=== PATIENT | female | born 1960 | race Two or more races ===

== ENCOUNTER → 2018-08-13 | Outpatient (CLI) | payer BC | END | disposition home or self-care (01) | LOC: HKI 10:26 | DX: M25.551 Pain in right hip (principal); Z96.641 Presence of right artificial hip joint | CPT/HCPCS: 73502 ==

== ENCOUNTER → 2018-08-25 | Outpatient (CLI) | payer BC | END | disposition home or self-care (01) | LOC: HKI 10:15 | DX: Q65.89 Other specified congenital deformities of hip (principal); Z96.641 Presence of right artificial hip joint | CPT/HCPCS: Z7500 ==

== ENCOUNTER → 2018-10-02 | Outpatient (CLI) | payer BC | END | disposition home or self-care (01) | LOC: HKI 14:51 | DX: M89.551 Osteolysis, right thigh (principal); Z96.641 Presence of right artificial hip joint | CPT/HCPCS: 72170 ==

== ENCOUNTER 2018-12-23 05:39 | Inpatient (IN) | payer BC ==
[2018-12-23] MEDS ORDERED: PANTOPRAZOLE (EC) 40 MG TAB PO (06:00)
[2018-12-23] MEDS ORDERED: ACETAMINOPHEN 500 MG TAB PO (06:00)
[2018-12-23] MEDS: ACETAMINOPHEN 1000MG/100ML IV 100 ML IVPB (06:28)
[2018-12-23] MEDS: ONDANSETRON 4 MG INJ IV (06:28)
[2018-12-23] MEDS: LANSOPRAZOLE 30 MG CAP PO (06:29)
[2018-12-23] MEDS: GABAPENTIN 300 MG CAP PO ×2 (06:29→20:44)
[2018-12-23] MEDS: CELECOXIB 200 MG CAP PO (06:29)
[2018-12-23] MEDS: LACTATED RINGER'S 1,000 ML IV ×3 (06:29→20:45)
[2018-12-23] MEDS ORDERED: TRANEXAMIC ACID 1GM/100ML(PMX) 200 ML (06:50)
[2018-12-23] MEDS: CEFAZOLIN 2 GM/50 ML (PMX) 50 ML (FOR WT < 120 KG) IVPB (07:37)
[2018-12-23] MEDS ORDERED: ROPIVACAINE 0.5 % 30 ML VIAL (07:40)
[2018-12-23] MEDS ORDERED: MIDAZOLAM 1 MG/ML 2 ML INJ (07:40)
[2018-12-23] MEDS ORDERED: ROCURONIUM 50 MG INJ (07:40)
[2018-12-23] MEDS: TRANEXAMIC ACID 1GM/100ML(PMX) 100 ML AT INCISION X1 IVPB (07:40)
[2018-12-23] MEDS ORDERED: CEFAZOLIN 1 GM INJ (07:40)
[2018-12-23] MEDS ORDERED: SEVOFLURANE 15 MIN (07:40)
[2018-12-23] MEDS ORDERED: PROPOFOL 20 ML (07:40)
[2018-12-23] MEDS ORDERED: morphine SULFATE/PF (10 MG/10 ML) INJ (07:40)
[2018-12-23] MEDS ORDERED: PHENYLephrine (100 MCG/ML) 10ML SYG (08:33)
[2018-12-23] MEDS ORDERED: EPHEDrine 25 MG/5 ML SYG (08:33)
[2018-12-23] MEDS: TRANEXAMIC ACID 1GM/100ML(PMX) 100 ML AT CLOSURE X1 IVPB (09:07)
[2018-12-23] MEDS: POLYMYXIN/BACITRACIN 1L IRRIG (11:05)
[2018-12-23] MEDS ORDERED: ONDANSETRON 4 MG INJ IV (11:30)
[2018-12-23] MEDS ORDERED: HYDROmorphONE 1 MG/5 ML IV SYRINGE IV ×3 (11:30)
[2018-12-23] MEDS ORDERED: FENTAnyl 50 MCG/ML VIAL IV ×3 (11:30)
[2018-12-23] MEDS ORDERED: hydrALAzine 20 MG INJ IV (11:30)
[2018-12-23] MEDS ORDERED: OXYCODONE/ACETAMINOPHEN (5/325) TAB PO ×2 (11:30)
[2018-12-23] MEDS ORDERED: MEPERIDINE 25 MG INJ IV (11:30)
[2018-12-23] MEDS ORDERED: LABETALOL HCL 20MG INJ IV (11:30)
[2018-12-23] MEDS ORDERED: DIPHENHYDRAMINE 50 MG INJ IV ×2 (11:30→13:00)
[2018-12-23] MEDS ORDERED: METOCLOPRAMIDE 10 MG INJ IV (11:30)
[2018-12-23] MEDS ORDERED: EPHEDrine 25 MG/5 ML SYG IV (11:30)
[2018-12-23] MEDS ORDERED: KETOROLAC 30 MG INJ (11:32)
[2018-12-23] MEDS ORDERED: METOCLOPRAMIDE 10 MG INJ (11:32)
[2018-12-23] MEDS ORDERED: SUGAMMADEX SODIUM 200 MG/2 ML VIAL IV (11:32)
[2018-12-23] MEDS ORDERED: ONDANSETRON 4 MG INJ (11:32)
[2018-12-23] MEDS ORDERED: DEXAMETHASONE 4 MG/ML 5 ML INJ (11:32)
[2018-12-23] MEDS ORDERED: NACL 0.9% 3 ML SYG IV (13:00)
[2018-12-23] MEDS ORDERED: NALOXONE (0.4 MG/ML) INJ IV (13:00)
[2018-12-23] MEDS ORDERED: BETHANECHOL 25 MG TAB PO (13:00)
[2018-12-23] MEDS ORDERED: BISACODYL 10 MG SUPP PR (13:00)
[2018-12-23] MEDS ORDERED: HYDROmorphONE 1 MG/ML SYG IV (13:00)
[2018-12-23] MEDS ORDERED: oxyCODONE 5 MG TAB PO ×3 (13:00)
[2018-12-23] MEDS ORDERED: NA PHOSPHATE/BIPHOS 133 ML ENEMA PR (13:00)
[2018-12-23] MEDS ORDERED: MAGNESIUM HYDROXIDE 30ML CUP PO (13:00)
[2018-12-23] MEDS ORDERED: SENNA/DOCUSATE NA (8.6MG/50MG) TAB PO (13:00)
[2018-12-23] MEDS: CEFAZOLIN 2 GM/50 ML (PMX) 50 ML IVPB ×2 (13:08→20:44)
[2018-12-23] MEDS: ACETAMINOPHEN 500 MG TAB PO ×2 (14:00→20:45)
[2018-12-23] MEDS: DOCUSATE SODIUM 100 MG CAP PO (14:12)
[2018-12-24 04:59] LABS: ADD MAN DIFF? NO
[2018-12-24 05:03] LABS: BASOPHILS % 0.1 % (0.0-2.0); HEMATOCRIT 31.6 % (37.0-47.0); HEMOGLOBIN 10.3 g/dl (12.0-16.0); LYMPHOCYTES # 1.2 10^3/ul (0.8-2.9); LYMPHOCYTES % 8.6 % (15.0-51.0); MEAN CORPUSCULAR HEMOGLOBIN 29.1 pg (29.0-33.0); MEAN CORPUSCULAR HGB CONC 32.6 g/dl (32.0-37.0); MEAN CORPUSCULAR VOLUME 89.3 fl (82.0-101.0); MEAN PLATELET VOLUME 10.6 fl (7.4-10.4); MONOCYTE # 0.8 10^3/ul (0.3-0.9); MONOCYTES % 5.9 % (0.0-11.0); NEUTROPHIL # 11.9 10^3/ul (1.6-7.5); NEUTROPHILS % 84.8 % (39.0-77.0); PLATELET COUNT 162 10^3/UL (140-415); RED BLOOD COUNT 3.54 10^6/ul (4.20-5.40); RED CELL DISTRIBUTION WIDTH 12.9 % (11.5-14.5)
[2018-12-24] MEDS: CEFAZOLIN 2 GM/50 ML (PMX) 50 ML IVPB (05:04)
[2018-12-24] MEDS: PANTOPRAZOLE (EC) 40 MG TAB PO (05:05)
[2018-12-24] MEDS: ACETAMINOPHEN 500 MG TAB PO ×3 (05:05→20:37)
[2018-12-24 05:20] LABS: HEMOGLOBIN A1C 5.7 % (0-5.9)
[2018-12-24 05:24] LABS: INR 1.07; PT RATIO 1.1
[2018-12-24 05:25] LABS: ANION GAP 7 (5-13); BLOOD UREA NITROGEN 13 mg/dl (7-20); CALCIUM 8.8 mg/dl (8.4-10.2); CARBON DIOXIDE 23 mmol/L (21-31); CHLORIDE 112 mmol/L (97-110); CREATININE 0.64 mg/dl (0.44-1.00); Estimated GFR > 60 mL/min (>60); GLUCOSE 146 mg/dl (70-220); POTASSIUM 4.6 mmol/L (3.5-5.1); SODIUM 142 mmol/L (135-144)
[2018-12-24 05:26] LABS: CHOLESTEROL 212 mg/dl (100-200)
[2018-12-24 05:26] LABS: HDL CHOLESTEROL 52 mg/dl (35-98); LDL CHOLESTEROL,CALCULATED 136 mg/dl; TRIGLYCERIDES 119 mg/dl (0-149)
[2018-12-24 06:19] LABS: ADD UMIC NO; UR ASCORBIC ACID NEGATIVE (NEGATIVE); UR BILIRUBIN (Dip) NEGATIVE (NEGATIVE); UR BLOOD (Dip) NEGATIVE (NEGATIVE); UR CLARITY CLEAR (CLEAR); UR COLOR STRAW (YELLOW); UR GLUCOSE (Dip) 2+ mg/dL (NEGATIVE); UR KETONES (Dip) NEGATIVE (NEGATIVE); UR LEUKOCYTE ESTERASE (Dip) NEGATIVE Leu/ul (NEGATIVE); UR NITRITE (Dip) NEGATIVE (NEGATIVE); UR SPECIFIC GRAVITY (Dip) 1.009 (1.003-1.030); UR TOTAL PROTEIN (Dip) NEGATIVE (NEGATIVE); UR UROBILINOGEN (Dip) NEGATIVE (NEGATIVE)
[2018-12-24] MEDS: ASPIRIN (EC) 81 MG TAB PO ×2 (09:04→20:28)
[2018-12-24] MEDS: DOCUSATE SODIUM 100 MG CAP PO ×2 (09:04→20:28)
[2018-12-24] MEDS: KETOROLAC 15 MG INJ IV ×2 (09:08→15:31)
[2018-12-24] MEDS: LACTATED RINGER'S 1,000 ML IV ×2 (12:00→20:37)
[2018-12-24] MEDS ORDERED: ONDANSETRON 4 MG INJ IV (13:00)
[2018-12-24 16:07] LABS: SYN FLD MN % 69.1 &; SYN FLD PMN % 30.9 % (0.0-25.0); SYN FLD WBC 610 /cmm (0-150)
[2018-12-24] MEDS: SOD CHLORIDE 0.9% 250 ML IV (16:42)
[2018-12-24 16:48] LABS: SYN FLD CLARITY HAZY; SYN FLD COLOR YELLOW; SYN FLD CRYSTALS NO CRYSTALS SEEN (None seen)
[2018-12-24 16:48] LABS: SYN FLD SOURCE HIP FLUID
[2018-12-24] MEDS: ATORVASTATIN 20 MG TAB PO (20:28)
[2018-12-24] MEDS: GABAPENTIN 300 MG CAP PO (20:28)
[2018-12-25 05:14] LABS: WHITE BLOOD COUNT 10.7 10^3/ul (4.8-10.8)
[2018-12-25 05:14] LABS: ADD MAN DIFF? NO; BASOPHILS % 0.2 % (0.0-2.0); EOSINOPHILS # 0.1 10^3/ul (0.0-0.5); EOSINOPHILS % 0.8 % (0.0-7.0); HEMATOCRIT 28.7 % (37.0-47.0); LYMPHOCYTES # 2.8 10^3/ul (0.8-2.9); LYMPHOCYTES % 26.6 % (15.0-51.0); MEAN CORPUSCULAR HEMOGLOBIN 28.8 pg (29.0-33.0); MEAN CORPUSCULAR HGB CONC 31.4 g/dl (32.0-37.0); MEAN CORPUSCULAR VOLUME 91.7 fl (82.0-101.0); MEAN PLATELET VOLUME 10.9 fl (7.4-10.4); MONOCYTE # 0.7 10^3/ul (0.3-0.9); MONOCYTES % 6.8 % (0.0-11.0); NEUTROPHILS % 65.2 % (39.0-77.0); PLATELET COUNT 147 10^3/UL (140-415); RED BLOOD COUNT 3.13 10^6/ul (4.20-5.40); RED CELL DISTRIBUTION WIDTH 13.5 % (11.5-14.5)
[2018-12-25 05:31] LABS: ANION GAP 2 (5-13); BLOOD UREA NITROGEN 17 mg/dl (7-20); CALCIUM 8.5 mg/dl (8.4-10.2); CARBON DIOXIDE 28 mmol/L (21-31); CHLORIDE 111 mmol/L (97-110); CREATININE 0.67 mg/dl (0.44-1.00); Estimated GFR > 60 mL/min (>60); GLUCOSE 110 mg/dl (70-220); POTASSIUM 4.3 mmol/L (3.5-5.1); SODIUM 141 mmol/L (135-144)
[2018-12-25 05:40] LABS: INR 1.02; PROTIME 13.5 Sec (11.9-14.9); PT RATIO 1.1
[2018-12-25] MEDS: PANTOPRAZOLE (EC) 40 MG TAB PO (06:57)
[2018-12-25] MEDS: ACETAMINOPHEN 500 MG TAB PO ×2 (06:57→14:12)
[2018-12-25] MEDS: ASPIRIN (EC) 81 MG TAB PO (09:04)
[2018-12-25] MEDS: DOCUSATE SODIUM 100 MG CAP PO (09:04)
[2018-12-25] MEDS: KETOROLAC 15 MG INJ IV (09:07)
[2018-12-25] MEDS: LACTATED RINGER'S 1,000 ML IV (14:35)
== END 2018-12-25 16:45 | disposition home health service (06) | DRG 468 ==
LOC: REC 05:39 → MS1 14:33
PROC: 0SRR03Z Replacement of Right Hip Joint, Femoral Surface with Ceramic Synthetic Substitute, Open Approach (ICD-10-PCS; principal; 2018-12-23 07:30)
PROC: 0SPR0JZ Removal of Synthetic Substitute from Right Hip Joint, Femoral Surface, Open Approach (ICD-10-PCS; 2018-12-23 07:30)
PROC: 0SP909Z Removal of Liner from Right Hip Joint, Open Approach (ICD-10-PCS; 2018-12-23 07:30)
PROC: 0SUA09Z Supplement Right Hip Joint, Acetabular Surface with Liner, Open Approach (ICD-10-PCS; 2018-12-23 07:30)
DX: T84.060A Wear of articular bearing surface of internal prosthetic right hip joint, initial encounter (principal); E78.5 Hyperlipidemia, unspecified; R42 Dizziness and giddiness; Y83.8 Other surgical procedures as the cause of abnormal reaction of the patient, or of later complication, without mention of misadventure at the time of the procedure
CPT/HCPCS: 72170; 73500; 73530; 80048; 80061; 81003; 83036; 85025; 85610; 86850; 86900; 86901; 86920; 87070; 87075; 87081; 87086; 87102; 87116; 88300; 89060; 97110; 97116; 97162; 97165; 97530; 97535; 99217